=== PATIENT | female | born 1980 | race Caucasian/White ===

== ENCOUNTER → 2020-09-20 08:00 | Outpatient (CLI) | payer OTHER, SELFPAY ==
[2020-09-20 12:13] LABS: COVID19 -Nasal RAPID POSITIVE (Negative)
[2020-09-20 15:33] LABS: COVID-19 CEPHEID PCR (VTM/NP) Negative (Negative)
== END ==
PROVIDERS: Visit Provider Student in an Organized Health Care Education/Training Program
DX: Z01.812 Encounter for preprocedural laboratory examination (principal); Z20.822 Contact with and (suspected) exposure to COVID-19
CPT/HCPCS: 87635; U0003

== ENCOUNTER 2021-04-12 23:35 | Emergency (ER) | payer OTHER, SELFPAY ==
[2021-04-12 23:43] VITALS: PULSE 84; RESP 18; O2SAT 100
[2021-04-12 23:44] VITALS: BP 190/92; PULSE 92; RESP 17; TEMP 36.3; O2SAT 100; BMI 31.5
--- NOTE | 2021-04-12 23:54 | ED_ITS ---
HPI - General Adult General Chief complaint: Dizziness Stated complaint: dizzy/nausea/feels foggy minded x2 days Time Seen by Provider: 04/12/21 23:37 Source: patient Mode of arrival: Ambulatory Limitations: no limitations History of Present Illness HPI narrative: Patient is a 40-year-old female who is here for evaluation of 2 separate episodes. She states that yesterday she had an episode where she felt dizzy. Was not a room spinning sensation was just a lightheadedness. She felt like her head was heavy. It took her a minute to ?catch up ?to what her eyes were seen. She had no other associated symptoms. Yesterday symptoms seem to improve and then she similar symptoms happening today. She had some nausea. Had a difficult time getting up. She went to go take a bath because of the symptoms and could get up out of the bathtub. She had similar symptoms several years ago. Went to an outside facility. She does admit that at that time she was having room spinning sensations and was initially diagnosed with vertigo. She then had a MRI. Initially stated that she had a vertebral artery dissection or aneurysm she is unsure as to which 1 it was. She is on aspirin. She does have a history of high blood pressure and is on medications for this. She does see a vascular surgeon. Is also seen a neurologist. She was told that the vertigo that she initially had was a ?TIA? Related Data Allergies Allergy/AdvReac Type Severity Reaction Status Date / Time amoxicillin Allergy Rash Verified 04/12/21 23:43 prednisone Allergy Verified 04/12/21 23:43 sulfamethoxazole Allergy Verified 04/12/21 23:43 [From ] trimethoprim [From ] Allergy Verified 04/12/21 23:43 Review of Systems Constitutional Constitutional: Denies fever(s) and Denies headache(s) Eyes Eyes: Reports system reviewed and no additional complaints, except as documented ENT Ears, Nose, Mouth, and Throat: Denies headache(s) Cardiovascular Cardiovascular: Reports system reviewed and no additional complaints, except as documented Respiratory Respiratory: Reports system reviewed and no additional complaints, except as documented Gastrointestinal Gastrointestinal: Reports system reviewed and no additional complaints, except as documented Musculoskeletal Musculoskeletal: Reports system reviewed and no additional complaints, except as documented Integumentary/Breasts Skin/Breast: Reports system reviewed and no additional complaints, except as documented Neurologic Neurologic: Reports system reviewed and no additional complaints, except as documented, Reports as per HPI and Denies headache(s) Hematologic/Lymphatic Hematologic/Lymphatic: Reports system reviewed and no additional complaints, except as documented On Anticoagulants: No Allergic/Immunologic Allergic/Immunologic: Reports system reviewed and no additional complaints, except as documented Patient History Medical History Dizzinesses Social History Smoking Status: Never smoker Smoking Status: Never smoker alcohol intake frequency: a few times a month Substance Use Type: does not use Exam Initial Vital Signs Initial Vital Signs: Vital Signs Pulse Rate 84 04/12/21 23:43 Respiratory Rate 18 04/12/21 23:43 Pulse Oximetry 100 04/12/21 23:43 Const General: cooperative, healthy appearing, comfortable and well developed Limitations: mental status not altered HENMT Head: normal to inspection and normocephalic Eyes General: appearance normal, both eyes and all related structures Resp Effort & Inspection: normal respiratory effort Auscultation: clear to auscultation bilaterally Cardio Rate: regular rate Rhythm: regular rhythm GI Inspection: normal to inspection Skin General: no rashes or lesions noted Neuro General: patient alert, patient awake, patient oriented x3 and moves all extremities Cranial Nerves: CN's II-XI intact bilaterally Cognition: normal cognition Speech: speech normal Motor: muscle tone normal throughout Sensory Exam: no sensory deficits noted Extrem General: normal to inspection and capillary refill normal Psych Appearance: grossly normal and well kempt Course Orders Ordered: ED Orders 04/12/21 23:51 Basic Metabolic Panel Stat Complete Blood Count AUTO DIFF Stat Ethanol (ETOH) Stat Test Serum,Qual Stat Thyroid Stimulating Hormone Stat Troponin & CK Cardiac Panel Stat 04/12/21 23:55 CT angio head and neck Stat EKG-12 Lead Stat Discontinued Medications Sodium Chloride (Normal Saline 0.9%) 1,000 mls @ 500 mls/hr IV BOLUS ONE Stop: 04/13/21 01:53 Last Admin: 04/13/21 00:01 Dose: 500 mls/hr Documented by: KRISTOPHER Vital Signs Vital signs: Vital Signs - 8 hr 04/12/21 23:43 04/12/21 23:44 04/13/21 00:00 Temperature 97.3 F L Pulse Rate 84 92 H 83 Respiratory Rate 18 17 16 Blood Pressure 190/92 H 158/79 H Pulse Oximetry 100 100 100 04/13/21 00:30 04/13/21 00:50 04/13/21 01:00 Temperature Pulse Rate 85 91 H 89 Respiratory Rate 19 18 16 Blood Pressure 148/80 H 153/74 H 137/70 Pulse Oximetry 100 100 99 04/13/21 01:30 Temperature Pulse Rate 91 H Respiratory Rate 18 Blood Pressure 128/64 Pulse Oximetry 97 Medical Decision Making Lab Data Lab results reviewed: Yes I reviewed the patient's lab results. Result diagrams: 04/12/21 23:51 04/12/21 23:51 Labs: Lab Results 04/12/21 04/12/21 04/12/21 Range/Units 23:51 23:51 23:51 WBC 6.4 (4.5-11.0) X10^3/uL RBC 4.22 (4.0-5.2) X10^6/uL Hgb 13.1 (12.0-16.0) g/dL Hct 37.6 (36-46) % MCV 89.3 (80-100) fL MCH 31.2 (26-34) PG MCHC 34.9 (30-36) % RDW 13.0 (11.6-14.8) % Plt Count 363 (150-400) X10^3/uL Neut % (Auto) 56.9 (50-75) % Lymph % (Auto) 26.2 (25-40) % [place] % (Auto) 12.3 (3-14) % Eos % (Auto) 3.5 (2-4) % Baso % (Auto) 1.1 (0-2) % Neut # (Auto) 3600 (5862-0456) /uL Lymph # (Auto) 1700 (9138-1009) /uL [place] # (Auto) 800 (0-900) /uL Eos # (Auto) 200 (0-450) /uL Baso # (Auto) 100 (0-100) /uL Sodium 138 (137-145) mmol/L Potassium 3.9 (3.4-5.1) mmol/L Chloride 103 (98-107) mmol/L Carbon Dioxide 29 (22-32) mmol/L BUN 20 H (7-17) mg/dL Creatinine 0.68 (0.52-1.04) mg/dL Estimated GFR > 60.0 (>60) mL/min BUN/Creatinine Ratio 29.4 H (6-22) Glucose 96 (70-100) mg/dL Calcium 9.2 (8.4-10.2) mg/dL Total Creatine Kinase 56 (30-135) U/L CK-MB (CK-2) TNP CK-MB (CK-2) Rel Index TNP Troponin I < 0.012 (0.01-0.034) ng/mL TSH 0.192 L (0.47-4.68) uIU/mL Serum , Qual (Negative) Ethyl Alcohol < 10 ( - 10) mg/dL 04/12/ Range/Units 23:51 WBC (4.5-11.0) X10^3/uL RBC (4.0-5.2) X10^6/uL Hgb (12.0-16.0) g/dL Hct (36-46) % MCV (80-100) fL MCH (26-34) PG MCHC (30-36) % RDW (11.6-14.8) % Plt Count (150-400) X10^3/uL Neut % (Auto) (50-75) % Lymph % (Auto) (25-40) % [place] % (Auto) (3-14) % Eos % (Auto) (2-4) % Baso % (Auto) (0-2) % Neut # (Auto) (7021-8392) /uL Lymph # (Auto) (8258-3817) /uL [place] # (Auto) (0-900) /uL Eos # (Auto) (0-450) /uL Baso # (Auto) (0-100) /uL Sodium (137-145) mmol/L Potassium (3.4-5.1) mmol/L Chloride (98-107) mmol/L Carbon Dioxide (22-32) mmol/L BUN (7-17) mg/dL Creatinine (0.52-1.04) mg/dL Estimated GFR (>60) mL/min BUN/Creatinine Ratio (6-22) Glucose (70-100) mg/dL Calcium (8.4-10.2) mg/dL Total Creatine Kinase (30-135) U/L CK-MB (CK-2) CK-MB (CK-2) Rel Index Troponin I (0.01-0.034) ng/mL TSH (0.47-4.68) uIU/mL Serum , Qual Negative (Negative) Ethyl Alcohol ( - 10) mg/dL Imaging Data CTA head/neck: Radiologist's Impression: [address] [address] [address] Scan Report Signed Patient: Nikki Ponce MR#: [id number] : 1980 Acct:[id number] Age/Sex: 40 / F Date of Service: 04/12/21 Loc: ED Accession Number: [id number] ?? Procedure: CT angio head and neck Ordering Provider: Fox De Dios D.O. PROCEDURE:? CT ANGIO HEAD AND NECK ? INDICATIONS:? history of verterbral artery dissection, currently having lightheadednes ? TECHNIQUE:? Pre-contrast 4.5 mm thick sections acquired from the foramen magnum to the vertex.? After the administration of intravenous contrast, 1 mm thick sections acquired from the aortic arch through the [place].? Post-contrast 4.5 mm thick sections then re- acquired from the foramen magnum to the vertex.? 3-dimensional rgcaisd-hygtyhdyf-rwaxavlzog (MIP) and/or volume rendering reformats were acquired of the central intracranial vasculature and neck separately. ? COMPARISON:? None. ? FINDINGS:? Image quality:? Excellent.? ? BRAIN:? CSF spaces:? Ventricles are normal in size and shape.? Basal cisterns are patent.? No extra-axial fluid collections.? ? Brain:? No midline shift.? No intracranial bleeds or masses.? Cervantes-white matter interface appears intact.? ? Skull and face:? Calvarium and facial bones appear intact, without suspicious lesions.? Orbits appear normal.? ? Sinuses:? Large left maxillary sinus mucous retention cyst versus polyp.? The mastoids are clear.? ? HEAD CT ANGIOGRAPHY:? Anterior circulation:? Intracranial internal carotid arteries are normal in size and flow.? The flow within the paired anterior cerebral arteries is normal and symmetric.? The flow within the middle cerebral arteries is normal and symmetric.? The anterior communicating artery is seen.? No aneurysms are seen.? ? Posterior circulation:? Visualized portions of the vertebral arteries demonstrate normal caliber, and join to form a normal appearing basilar artery.? Flow within the posterior cerebral arteries is normal and symmetric.? No aneurysms are seen. ? Dural sinuses demonstrate normal postcontrast enhancement. ? ? NECK CT ANGIOGRAPHY:? Carotid system:? The great vessels demonstrate a conventional anatomy as they arise from the aortic arch.? The origins of the common carotid arteries appear patent.? The common carotid arteries demonstrate normal caliber and courses.? The bifurcation regions are both widely patent.? The internal carotid arteries demonstrate normal courses.? There is mild, fusiform aneurysmal dilatation of the high cervical segment of the right internal carotid artery to 8 millimeters.? ? Posterior circulation:? The origins of the vertebral arteries both appear widely patent.? The more superior extracranial portions of both vertebral arteries also demonstrate normal courses and calibers.? They join to form a normal appearing basilar artery.? ? Soft tissues:? Visualized neck soft tissues demonstrate no suspicious abnormalities.? Thyroid gland is surgically absent.? ? Bones:? No suspicious bony lesions.? Multilevel spine facet hypertrophy.? Visualized cervical spine appears normally aligned.? ? ? IMPRESSION:? ? 1. No acute intracranial disease process. ? 2. No large vessel occlusion, vascular stenosis, vascular dissection or cerebral aneurysm. ? 3. Mild, 8 millimeter in diameter, fusiform aneurysmal dilatation of the distal cervical segment of the right internal carotid artery.? ? ? Any quantitative measurements of stenosis were performed using NASCET criteria.? ? ? Dictated by: Funmi Recio MD, PhD on 04/13/2021 at 1:14 ? ? Approved by: Funmi Recio MD, PhD on 04/13/2021 at 1:25?? ECG Data Attestation: I personally reviewed and interpreted this ECG as follows: Interpretation: Sinus rhythm Ventricular rate 87 Normal axis Normal QRS Normal QTC No ST T wave changes MDM Narrative Medical decision making narrative: Patient does have a nonfocal neurologic exam. The CTA of her head neck does show an internal carotid artery aneurysmal dilation. The patient's was able to pull up her prior CT/MRI results and this is what the patient was diagnosed with during her last episode several years ago. Was not a vertebral a rtery pathology. I have low suspicion for TIA or CVA. Patient was hypertensive but does have history of hypertension. Electrolytes are unremarkable. Patient does not describe vertigo but more by a lightheadedness. Creole that we can hold on further workup for vertigo. Patient was provided reassurance and provided the results of her workup here in the ER. She was given return precautions. She expressed understanding and agreement. 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 Recommend you contact your primary doctor for a follow-up. Keep all of your scheduled medical appointments. Return to the emergency department for any new or worsening symptoms. Referrals: Miscellaneous,MD Heber [Primary Care Provider] -
--- NOTE | 2021-04-12 23:55 | DI.CT.S_ITS ---
PROCEDURE: CT ANGIO HEAD AND NECK INDICATIONS: history of verterbral artery dissection, currently having lightheadednes TECHNIQUE: Pre-contrast 4.5 mm thick sections acquired from the foramen magnum to the vertex. After the administration of intravenous contrast, 1 mm thick sections acquired from the aortic arch through the [place] of [place]. Post-contrast 4.5 mm thick sections then re-acquired from the foramen magnum to the vertex. 3-dimensional moaqrcv-eapdlvqts-euzcrfoiby (MIP) and/or volume rendering reformats were acquired of the central intracranial vasculature and neck separately. COMPARISON: None. FINDINGS: Image quality: Excellent. BRAIN: CSF spaces: Ventricles are normal in size and shape. Basal cisterns are patent. No extra-axial fluid collections. Brain: No midline shift. No intracranial bleeds or masses. Cervantes-white matter interface appears intact. Skull and face: Calvarium and facial bones appear intact, without suspicious lesions. Orbits appear normal. Sinuses: Large left maxillary sinus mucous retention cyst versus polyp. The mastoids are clear. HEAD CT ANGIOGRAPHY: Anterior circulation: Intracranial internal carotid arteries are normal in size and flow. The flow within the paired anterior cerebral arteries is normal and symmetric. The flow within the middle cerebral arteries is normal and symmetric. The anterior communicating artery is seen. No aneurysms are seen. Posterior circulation: Visualized portions of the vertebral arteries demonstrate normal caliber, and join to form a normal appearing basilar artery. Flow within the posterior cerebral arteries is normal and symmetric. No aneurysms are seen. Dural sinuses demonstrate normal postcontrast enhancement. NECK CT ANGIOGRAPHY: Carotid system: The great vessels demonstrate a conventional anatomy as they arise from the aortic arch. The origins of the common carotid arteries appear patent. The common carotid arteries demonstrate normal caliber and courses. The bifurcation regions are both widely patent. The internal carotid arteries demonstrate normal courses. There is mild, fusiform aneurysmal dilatation of the high cervical segment of the right internal carotid artery to 8 millimeters. Posterior circulation: The origins of the vertebral arteries both appear widely patent. The more superior extracranial portions of both vertebral arteries also demonstrate normal courses and calibers. They join to form a normal appearing basilar artery. Soft tissues: Visualized neck soft tissues demonstrate no suspicious abnormalities. Thyroid gland is surgically absent. Bones: No suspicious bony lesions. Multilevel spine facet hypertrophy. Visualized cervical spine appears normally aligned. IMPRESSION: 1. No acute intracranial disease process. 2. No large vessel occlusion, vascular stenosis, vascular dissection or cerebral aneurysm. 3. Mild, 8 millimeter in diameter, fusiform aneurysmal dilatation of the distal cervical segment of the right internal carotid artery. Any quantitative measurements of stenosis were performed using NASCET criteria. Dictated by: Funmi Recio MD, PhD on 04/13/2021 at 1:14 Approved by: Funmi Recio MD, PhD on 04/13/2021 at 1:25
[2021-04-13] VITALS: BP 158/79; PULSE 83; RESP 16; O2SAT 100
[2021-04-13] MEDS: SODIUM CHLORIDE 0.9% 1,000 ML 500 ML IV (00:01)
[2021-04-13 00:22] LABS: Add Manual Diff / Slide Review NO; Basophils Absolute Auto 100 /uL (0-100); Basophils Percent Auto 1.1 % (0-2); Eosinophils Absolute Auto 200 /uL (0-450); Eosinophils Percent Auto 3.5 % (2-4); Hematocrit 37.6 % (36-46); Hemoglobin 13.1 g/dL (12.0-16.0); Lymphocytes Absolute Auto 1700 /uL (1100-4500); Lymphocytes Percent Auto 26.2 % (25-40); Mean Corpuscular HGB Conc 34.9 % (30-36); Mean Corpuscular Hemoglobin 31.2 PG (26-34); Mean Corpuscular Volume 89.3 fL (80-100); Monocytes Absolute Auto 800 /uL (0-900); Monocytes Percent Auto 12.3 % (3-14); Neutrophils Absolute Auto 3600 /uL (1500-7000); Neutrophils Percent Auto 56.9 % (50-75); Platelet Count 363 X10^3/uL (150-400); Red Blood Cell Count 4.22 X10^6/uL (4.0-5.2); White Blood Cell Count 6.4 X10^3/uL (4.5-11.0)
[2021-04-13 00:30] VITALS: BP 148/80; PULSE 85; RESP 19; O2SAT 100
[2021-04-13 00:31] LABS: BUN Creatinine Ratio 29.4 (6-22); Blood Urea Nitrogen 20 mg/dL (7-17); Calcium 9.2 mg/dL (8.4-10.2); Carbon Dioxide 29 mmol/L (22-32); Chloride 103 mmol/L (98-107); Creatine Kinase 56 U/L (30-135); Estimated Glomerular Filt Rate > 60.0 mL/min (>60); Ethanol (ETOH) < 10 mg/dL; Glucose 96 mg/dL (70-100); HEMOLYSIS < 15 (0-50); Potassium 3.9 mmol/L (3.4-5.1); Sodium 138 mmol/L (137-145)
[2021-04-13 00:32] LABS: Pregnancy Test Serum,Qual Negative (Negative)
[2021-04-13 00:43] LABS: Troponin I < 0.012 ng/mL (0.01-0.034)
[2021-04-13 00:50] VITALS: BP 153/74; PULSE 91; RESP 18; O2SAT 100
[2021-04-13 01:00] VITALS: BP 137/70; PULSE 89; RESP 16; O2SAT 99
[2021-04-13 01:01] LABS: Thyroid Stimulating Hormone 0.192 uIU/mL (0.47-4.68)
[2021-04-13 01:30] VITALS: BP 128/64; PULSE 91; RESP 18; O2SAT 97
== END 2021-04-13 01:44 | disposition home or self-care (01) ==
PROVIDERS: Emergency Provider Emergency Medicine
DX: I67.1 Cerebral aneurysm, nonruptured (principal); R42 Dizziness and giddiness; R11.0 Nausea; R03.0 Elevated blood-pressure reading, without diagnosis of hypertension
CPT/HCPCS: 36415; 70496; 70498; 80048; 80320; 82550; 84443; 84484; 84703; 85025; 99284; Q9967

== ENCOUNTER → 2021-12-28 13:19 | Outpatient (CLI) | payer OTHER, SELFPAY ==
--- NOTE | 2021-12-28 13:22 | DI.MRI.S_ITS ---
PROCEDURE: MR KNEE RT WO CON INDICATIONS: EVAL TEAR OF MEDIAL MENISCUS RIGHT KNEE TECHNIQUE: Noncontrast sagittal PD fast spin echo and T2 fast spin echo with fat saturation, sagittal 3-D FLASH with fat saturation; coronal T1 spin echo and PD fast spin echo with fat saturation, and axial PD fast spin echo with fat saturation through the knee. COMPARISON: [facility] [place], CR, XR KNEE 4+ VIEWS RIGHT, 06/15/2021, 8:23. FINDINGS: Image quality: Excellent. Menisci: Amorphous and linear oblique high T2 signal intensity traverses the inner, middle, and peripheral thirds of the medial meniscal body and posterior horn, demonstrating superior and inferior articular surface extension, indicating complex tearing. Lateral meniscus is intact. Cruciate ligaments: The anterior and posterior cruciate ligaments appear intact. Medial structures: The medial collateral ligament appears intact. Visualized portions of the pes anserinus tendons appear normal. No abnormal bursal fluid. Lateral structures: The lateral collateral ligament, long and short heads of the biceps femoris tendon appear intact. The popliteus tendon appears normal. Iliotibial band appears normal. Anterior structures: The quadriceps and patellar tendons appear intact. Mild T2 signal elevation within the quadriceps and patellar tendons at the patellar insertion sites. Patellar alignment is normal. No femoral trochlear dysplasia or ventral trochlear prominence. No edema in the infrapatellar fat pad. Bones and cartilage: No bone marrow contusions or fractures. Articular cartilage fibrillation overlies the lateral patellar facet. Moderate articular cartilage loss diffusely overlies the weight-bearing aspects of the medial femoral condyle and medial tibial plateau. Joint space: There is a small knee joint effusion and a small Stout's cyst. Normal appearing synovial plicae are incidentally noted. IMPRESSION: 1. Tricompartmental osteoarthritis with associated articular cartilage loss. 2. Complex tearing of the medial meniscus. 3. Knee joint effusion and Stout's cyst. 4. Mild quadriceps and patellar tendinopathy. Dictated by: Juju Roach M.D. on 12/28/2021 at 15:16 Transcribed by: ANNA on 12/28/2021 at 15:18 Approved by: Juju Roach M.D. on 12/28/2021 at 16:55
== END ==
PROVIDERS: Referring Provider Physical Medicine & Rehabilitation; Visit Provider Physical Medicine & Rehabilitation
DX: S83.241A Other tear of medial meniscus, current injury, right knee, initial encounter (principal); M17.11 Unilateral primary osteoarthritis, right knee; M25.461 Effusion, right knee; M71.21 Synovial cyst of popliteal space [Baker], right knee
CPT/HCPCS: 73721

== ENCOUNTER → 2022-04-08 11:17 | Outpatient (CLI) | payer OTHER, SELFPAY ==
--- NOTE | 2022-04-08 11:34 | DI.MRI.S_ITS ---
PROCEDURE: MR KNEE RT WO CON INDICATIONS: Pain in right knee TECHNIQUE: Noncontrast sagittal PD fast spin echo and T2 fast spin echo with fat saturation, sagittal 3-D FLASH with fat saturation; coronal T1 spin echo and PD fast spin echo with fat saturation, and axial PD fast spin echo with fat saturation through the knee. COMPARISON: [facility], MR, MR KNEE RT WO CON, 12/28/2021, 14:00. FINDINGS: Image quality: Excellent. Anterior Cruciate Ligament: Intact. Posterior Cruciate Ligament: Intact. Medial Collateral Ligament: Intact. Lateral Collateral Ligament: Intact. Medial Meniscus: Mildly diminutive appearance of the medial meniscus is most likely secondary to partial meniscectomy. Intermediate signal intensity within the meniscal body may represent fibrovascular granulation tissue versus less likely residual or recurrent meniscal tearing. Lateral Meniscus: Intact. Medial and Lateral Tendons: The semimembranosus tendon insertions and meniscocapsular junction appear intact. Visualized portions of the pes anserinus tendons appear normal. No abnormal bursal fluid. The long and short heads of the biceps femoris tendon appear intact. The popliteus tendon appears intact. No signs of posterolateral corner injury. Iliotibial band appears normal. Anterior Structures: The quadriceps and patellar tendons appear intact. No patellar subluxation. Mildly congenitally shallow trochlear groove is seen with lateral patellar tilting but no patellar subluxation. The tibial tubercle-trochlear groove distance is within normal limits. Scarring is seen in the infrapatellar fat pad. Bones: Mild osseous edema is seen at the anterior medial aspect of the medial tibial plateau and to a lesser extent the adjacent medial femoral condyle, which is most likely reactive to the adjacent meniscal pathology versus secondary to overlying cartilage loss or possibly recent osseous contusions. Medial Femorotibial Cartilage: There is moderate partial-thickness cartilage thinning in the weight-bearing portion of the medial femorotibial compartment. Lateral Femorotibial Cartilage: No focal cartilage defect. Mild surface irregularity. Patellofemoral Cartilage: Partial-thickness cartilage irregularity and superimposed full-thickness cartilage fissuring are seen in the lateral patellar facet with focal subchondral cystic changes and edema. Soft Tissues: There is a moderate joint effusion. A small medial popliteal cyst is present. No medial popliteal cyst. The musculature surrounding the knee is normal in bulk. IMPRESSION: 1. Postsurgical changes from partial medial meniscectomy. Intermediate signal intensity within the body and posterior horn is nonspecific in the postsurgical setting and may represent fibrovascular granulation tissue versus residual or recurrent meniscal tearing. 2. Mild osseous edema in the medial tibial plateau and medial femoral condyle is most likely reactive to the adjacent meniscal pathology/meniscal surgery versus less likely overlying cartilage loss or osseous contusions. 3. Grade 2-3 cartilage thinning throughout the weight-bearing portion of the medial femorotibial compartment. Grade 2 chondromalacia and full-thickness cartilage fissuring are seen in the anterior compartment. Minimal chondromalacia is seen in the lateral compartment. 4. Mildly congenitally shallow trochlear groove with lateral patellar tilting but no patellar subluxation. 5. Moderate joint effusion. Small medial popliteal cyst. Approved by: Checo Aranda M.D. on 04/08/2022 at 12:49
== END ==
PROVIDERS: Referring Provider Orthopaedic Surgery; Visit Provider Orthopaedic Surgery
DX: M94.261 Chondromalacia, right knee (principal); M25.461 Effusion, right knee; M71.21 Synovial cyst of popliteal space [Baker], right knee; M25.561 Pain in right knee
CPT/HCPCS: 73721

== ENCOUNTER → 2023-02-13 16:05 | Outpatient (CLI) | payer OTHER, SELFPAY ==
--- NOTE | 2023-02-13 | DI.US.S_ITS ---
PROCEDURE: US PELVIC COMPLETE INDICATIONS: PELVIC PAIN TECHNIQUE: Real-time scanning was performed of the pelvic organs, with image documentation. Additional endovaginal scanning was necessary due to incomplete visualization of the adnexal and endometrial structures by transabdominal scanning. COMPARISON: None. FINDINGS: Uterus: Uterus is anteverted and normal in size at 8.7 x 4.5 x 6.4 cm. Bicornuate versus septate uterus. The intrauterine device is in the left horn of the uterus. The myometrium is homogeneous. The endometrium measures 7 mm combined thickness. Ovaries: The right ovary measures 3.2 x 2.0 x 1.8 cm, with a calculated ovarian volume of 5.7 cc. The left ovary measures 4.3 x 2.4 x 2.4 cm, with a calculated ovarian volume of 12.9 cc. Left ovarian simple cyst measuring 2.1 x 1.8 x 1.8 cm. The ovaries have a normal sonographic appearance. Less than 12 follicles can be seen in each ovary. No adnexal masses are seen. Other: No pathologic free abdominal or pelvic fluid. IMPRESSION: 1. 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 The intrauterine device is in the left horn of the uterus. 2. There is a 2.1 cm simple left ovarian cyst. The ovaries are normal in appearance. We strive to produce accurate, complete, and clear reports of imaging services. To assist us in improving patient care, this report was composed using standard report templates and voice recognition software. Therefore, it may contain abnormal punctuation, insertions and/or omissions. Occasional wrong-word or sound-alike substitutions may occur. Though we review the report and make efforts to correct it, we do recommend that the report be read carefully in proper context to recognize any text inaccuracies. Dictated by: Bari Fish M.D. on 02/13/2023 at 16:53 Approved by: Bari Fish M.D. on 02/13/2023 at 16:56
== END ==
PROVIDERS: Referring Provider Family Medicine; Visit Provider Family Medicine
DX: N83.292 Other ovarian cyst, left side (principal); R10.2 Pelvic and perineal pain; Z97.5 Presence of (intrauterine) contraceptive device
CPT/HCPCS: 76830; 76856; 93976

== ENCOUNTER → 2023-02-25 13:47 | Outpatient (CLI) | payer OTHER, SELFPAY ==
[2023-02-25 15:34] LABS: Free T4, Direct Thyroxine 1.88 ng/dL (0.78-2.19)
[2023-02-25 15:47] LABS: Thyroid Stimulating Hormone 0.065 uIU/mL (0.47-4.68)
== END ==
PROVIDERS: Referring Provider Internal Medicine Endocrinology, Diabetes & Metabolism; Visit Provider Internal Medicine Endocrinology, Diabetes & Metabolism
DX: E89.0 Postprocedural hypothyroidism (principal)
CPT/HCPCS: 36415; 84439; 84443

== ENCOUNTER → 2023-03-20 10:18 | Outpatient (CLI) | payer OTHER, SELFPAY ==
[2023-03-20 11:49] LABS: Free T4, Direct Thyroxine 2.13 ng/dL (0.78-2.19)
[2023-03-20 12:07] LABS: Thyroid Stimulating Hormone < 0.015 uIU/mL (0.47-4.68)
== END ==
PROVIDERS: Referring Provider Internal Medicine Endocrinology, Diabetes & Metabolism; Visit Provider Internal Medicine Endocrinology, Diabetes & Metabolism
DX: E89.0 Postprocedural hypothyroidism (principal)
CPT/HCPCS: 36415; 84439; 84443

== ENCOUNTER → 2023-06-02 17:01 | Outpatient (CLI) | payer OTHER, SELFPAY ==
[2023-06-02 19:30] LABS: Albumin 4.7 g/dL (3.5-5.0); BUN Creatinine Ratio 29.3 (6-22); Blood Urea Nitrogen 17 mg/dL (7-17); Calcium 9.1 mg/dL (8.4-10.2); Carbon Dioxide 26 mmol/L (22-32); Chloride 101 mmol/L (98-107); Estimated Glomerular Filt Rate > 60 mL/min (>60); Glucose 92 mg/dL (70-100); HEMOLYSIS < 15 (0-50); Magnesium 2.2 mg/dL (1.6-2.3); Phosphorous 4.2 mg/dL (2.5-4.5); Potassium 4.1 mmol/L (3.4-5.1); Sodium 137 mmol/L (137-145)
== END ==
PROVIDERS: Referring Provider Internal Medicine Nephrology; Visit Provider Internal Medicine Nephrology
DX: I77.3 Arterial fibromuscular dysplasia (principal); I10 Essential (primary) hypertension
CPT/HCPCS: 36415; 80069; 83735

== ENCOUNTER → 2024-01-21 15:38 | Outpatient (CLI) | payer OTHER, SELFPAY ==
--- NOTE | 2024-01-21 | DI.RAD.S_ITS ---
PROCEDURE: XR LUMBAR SPINE 2-3V INDICATIONS: LUMBAR BACK PAIN TECHNIQUE: 3 views of the lumbar spine were acquired. COMPARISON: None. FINDINGS: Bones: 5 [id number] vertebrae are present. There is normal bony alignment. No vertebral body compression fractures. No suspicious bony lesions. Scattered minimal to mild disc space narrowing most prominent L5-S1. Soft tissues: Overlying bowel gas pattern is normal. No suspicious soft tissue calcifications. IMPRESSION: No acute bony abnormality. Dictated by: Deborah Quan M.D. on 01/21/2024 at 21:15 Approved by: Deborah Quan M.D. on 01/21/2024 at 21:16
== END ==
PROVIDERS: Referring Provider Family Medicine; Visit Provider Family Medicine
DX: M54.50 Low back pain, unspecified (principal)
CPT/HCPCS: 72100

== ENCOUNTER → 2024-10-31 10:47 | Outpatient (CLI) | payer OTHER, SELFPAY ==
--- NOTE | 2024-10-31 10:49 | DI.MRI.S_ITS ---
PROCEDURE: MR ANKLE LT WO CON INDICATIONS: strain of muscle and tendon TECHNIQUE: Noncontrast sagittal T1 spin echo and T2 fast spin echo with fat saturation, axial proton density fast spin echo and T2 fast spin echo with fat saturation, coronal T1 spin echo and T2 fast spin echo with fat saturation through the ankle/hindfoot. COMPARISON: [facility] [place], CR, XR FOOT 3 VIEWS WEIGHT BEARING LEFT, 09/15/2024, 14:06. FINDINGS: Image quality: Excellent. Bones and joints: Mild osseous edema is seen in the midfoot surrounding the 1st through 4th tarsometatarsal joint. Elongated plantar portion of the navicular is seen without definite signs of calcaneonavicular coalition. Mild chronic cystic changes in the posterior calcaneus adjacent to the Achilles insertion. No osteochondral injuries of the talar dome. Nonedematous posterior and plantar calcaneal enthesophytes. Lisfranc ligament is intact. Medial structures: The deltoid ligament and the spring ligament complex are intact. Mild tenosynovitis of the distal posterior tibialis tendon. The flexor digitorum longus and flexor hallucis longus tendons are intact. The posterior tibial neurovascular bundle appears normal within the tarsal tunnel, without extrinsic mass effect. Lateral structures: Grade 2-3 sprain of the anterior talofibular ligament and grade 2 sprain of the calcaneofibular ligament. The posterior talofibular ligament is intact. The anterior and posterior tibiofibular ligaments are intact. Moderate peroneus brevis and longus tendinosis and tenosynovitis. The sinus tarsi demonstrates normal fatty signal. Anterior structures: The tibialis anterior, extensor hallucis longus, and extensor digitorum longus tendons appear intact. Posterior and plantar structures: Moderate Achilles tendinosis. Mild thickening of the proximal plantar fascia without acute tearing. No abductor digiti minimi muscle atrophy to suggest Tamez neuropathy. IMPRESSION: 1. Mild osseous edema throughout the midfoot surrounding the tarsometatarsal joints, most notably at the 3rd tarsometatarsal joint. Findings are favored to be secondary to degenerative changes versus chronic repetitive stress or osseous contusions. No fracture line is seen. 2. Remote prior grade 2-3 sprain of the anterior talofibular ligament and grade 2 sprain of the calcaneofibular ligament. 3. Moderate peroneus brevis and longus tendinosis and tenosynovitis. 4. Mild distal posterior tibialis tenosynovitis. 5. Moderate Achilles tendinosis. 6. Mild chronic proximal plantar fasciitis. Approved by: Checo Aranda M.D. on 11/01/2024 at 15:40
== END ==
PROVIDERS: Referring Provider Podiatrist; Visit Provider Podiatrist
DX: S93.492A Sprain of other ligament of left ankle, initial encounter (principal); S96.911A Strain of unspecified muscle and tendon at ankle and foot level, right foot, initial encounter; S93.412A Sprain of calcaneofibular ligament of left ankle, initial encounter; M65.972 Unspecified synovitis and tenosynovitis, left ankle and foot; M72.2 Plantar fascial fibromatosis; W19.XXXA Unspecified fall, initial encounter
CPT/HCPCS: 73721

== ENCOUNTER → 2025-03-07 08:47 | Outpatient (CLI) | payer OTHER, SELFPAY ==
--- NOTE | 2025-03-07 08:48 | DI.RAD.S_ITS ---
PROCEDURE: XR CHEST 2V INDICATIONS: Five days nonproductive cough no other symptoms TECHNIQUE: 2 views of the chest were acquired. COMPARISON: None. FINDINGS: Surgical changes and devices: None. Lungs and pleura: Small to moderate size airspace opacity in right lower lung field is seen. No pleural effusions or pneumothorax. Mediastinum: Mediastinal contours are normal. Heart size is normal. Bones and chest wall: No suspicious bony abnormalities. Soft tissues appear unremarkable. IMPRESSION: Suggestion of small to moderate size right lower lobe infiltrate. No pleural effusion or pneumothorax. Dictated by: Jose Pulliam M.D. on 03/07/2025 at 8:59 Approved by: Jose Pulliam M.D. on 03/07/2025 at 9:01
== END ==
PROVIDERS: Referring Provider Chiropractor; Visit Provider Chiropractor
DX: R05.1 Acute cough (principal)
CPT/HCPCS: 71046

== ENCOUNTER → 2025-03-20 12:12 | Outpatient (CLI) | payer OTHER, SELFPAY ==
--- NOTE | 2025-03-20 12:14 | DI.RAD.S_ITS ---
PROCEDURE: XR CHEST 2V INDICATIONS: Follow-up chest x-ray, pneumonia TECHNIQUE: 2 views of the chest were acquired. COMPARISON: [facility], CR, XR CHEST 2V, 03/07/2025, 8:43. FINDINGS: Surgical changes and devices: None. Lungs and pleura: Slight interval decrease in the lateral right lower lobe airspace opacity. No pleural effusions or pneumothorax. Mediastinum: Mediastinal contours are normal. Heart size is normal. Bones and chest wall: No suspicious bony abnormalities. Soft tissues appear unremarkable. IMPRESSION: Slight interval decrease in size of the right lower lobe consolidation concerning for pneumonia. Recommend follow-up chest radiograph in 4 weeks. Dictated by: Deng Godyo M.D. on 03/20/2025 at 12:35 Approved by: Deng Godoy M.D. on 03/20/2025 at 12:37
== END ==
LOC: RAD 12:14
PROVIDERS: PCP Family Medicine; Referring Provider Family Medicine; Visit Provider Nurse Practitioner Family
DX: R05.9 Cough, unspecified (principal)
CPT/HCPCS: 71046